=== PATIENT | male | born 1965 | race Caucasian/White ===

== ENCOUNTER 2019-03-09 12:17 | Emergency (ER) | payer OTHER ==
[2019-03-09 12:32] VITALS: BP 147/89
--- NOTE | 2019-03-09 12:46 | UC ---
Dental HPI - HPI Summary HPI Summary: Pt started having a toothache of the right lower molar 2 days ago. He called his dentist in [place] and made an appt for this coming Monday. He stopped in to an Urgent [facility] Center and was started on Augmentin yesterday. He has had 3 doses since he started. Today he has swelling to his right lower jaw and neck, he feels like he has difficulty swallowing, cannot swallow food and drinking is difficult. He has not been drooling. He had a fever and chills last pm, no recorded fever here. The swelling is worse today. He and his are driving back home to [place]. - History of Current Complaint Chief Complaint: UCDentalProblem Stated Complaint: DENTAL PAIN Time Seen by Provider: 03/09/19 12:22 Hx Obtained From: Patient Onset/Duration: Gradual Onset Severity: Moderate Pain Intensity: 7 Aggravating Factor(s): Chewing Alleviating Factor(s): Nothing Related History: Swelling - Allergies/Home Medications Allergies/Adverse Reactions: Allergies Allergy/AdvReac Type Severity Reaction Status Date / Time No Known Allergies Allergy Verified 03/09/19 12:25 Home Medications: Home Medications Acetaminophen with Codeine [Acetaminophen-Cod #3 Tablet] 1 tab Q4HR PRN [History Confirmed 03/09/19] Amoxicillin/Clavulanate TAB* [Augmentin TAB 875*] 875 mg PO BID 03/09/19 [ History Confirmed 03/09/19] PMH/Surg Hx/FS Hx/Imm Hx Previously Healthy: Yes Cardiovascular History: Hypertension - Surgical History Surgical History: Yes Surgery Procedure, Year, and Place: appy - Family History Known Family History: Positive: Non-Contributory - Social History Alcohol Use: Occasionally Substance Use Type: None Smoking Status (MU): Never Smoked Tobacco Review of Systems All Other Systems Reviewed And Are Negative: Yes Constitutional: Positive: Fever, Chills ENT: Positive: Dental Pain - right lower mid-molar, Other - Feels like he can't swallow, unable to swallow food, not drooling Is Patient Immunocompromised?: No Physical Exam Triage Information Reviewed: Yes Appearance: Well-Appearing, No Pain Distress, Well-Nourished Vital Signs: Initial Vital Signs Temp 98.2 F 03/09/19 12:29 Pulse 84 03/09/19 12:29 Resp 16 03/09/19 12:29 BP 147/89 03/09/19 12:29 Pulse Ox 99 03/09/19 12:29 Vital Signs Reviewed: Yes Eyes: Positive: Conjunctiva Clear ENT: Positive: TMs normal, Tonsillar swelling - Mostly right side, Trismus - Mild trismus, not drooling, Dental tenderness - right lower gumline is tender on palpation, not erythematous, not swollen,, Uvula midline Dental: Positive: Percussion Tenderness @ - right lower mid-molar Neck: Positive: Supple, Other: - Extreme tenderness and swelling right side of neck Respiratory: Positive: Lungs clear, Normal breath sounds, No respiratory distress, No accessory muscle use Cardiovascular: Positive: RRR, No Murmur, Pulses Normal, Brisk Capillary Refill Musculoskeletal Exam: Normal Neurological Exam: Normal Psychological Exam: Normal Skin: Positive: Other - See above notes Dental Complaint Course/Dx - Course Course Of Treatment: I am concerned patient may have a peritonsillar abscess. I am referring him to [facility] for further evaluation and treatment. We have no Ultrasound here, nor are we able to perform CT with contrast here. Pt refuses and ambulance transport but states he will go directly to the ER. - Differential Dx/Diagnosis Provider Diagnosis: Peritonsillar abscess determined by examination Discharge - Sign-Out/Discharge Documenting (check all that apply): Patient Departure All imaging exams completed and their final reports reviewed: No Studies - Discharge Plan Condition: Fair Disposition: HOME-RECOMMEND TO ED Referrals: Elie Morales MD [Primary Care Provider] - Additional Instructions: It is recommended that you go directly to the local Emergency Room for further evaluation immediately. If you feel like you are going to pass out, or any other concerns, pull worker and call 911. - Billing Disposition and Condition Condition: FAIR Disposition: Home-Recommend to ED - Attestation Statements Provider Attestation: I was available for consult. This patient was seen by the EDWARD. The patient was not presented to, seen by, or examined by me. -Ulises
== END 2019-03-09 12:51 | disposition home health service (06) ==
LOC: UCCORT 12:17
DX: J36 Peritonsillar abscess (principal); I10 Essential (primary) hypertension
CPT/HCPCS: 99212; G0463